=== PATIENT | male | born 1945 | race Caucasian/White ===

== ENCOUNTER 2017-04-16 14:19 | Inpatient (IN) | payer MEDICARE, OTHER ==
[~2017-04-16] VITALS: Ht 172.7 cm; Wt 118.9 kg
[~2017-04-16 14:19] MED LIST: GLUCOPHAGE500 MG/TAB PO; NORCO 325 MG-51 TAB PO; TYLENOL ARTHRI650 M1 PO; VALIUM 10MG10 MG/TAB PO
[2017-04-16 19:46] VITALS: BP 149/68; PULSE 91; TEMP 98
[2017-04-16] MEDS ORDERED: TYLENOL 325MG325 MG PO (23:10)
[2017-04-16] MEDS ORDERED: HEPARIN SOD5000 U/ML SQ (23:12)
[2017-04-16] MEDS ORDERED: ROBAXIN 50500 MG/TAB PO (23:13)
[2017-04-16] MEDS ORDERED: TUMS500 MG (23:14)
[2017-04-16] MEDS ORDERED: GLUCOPHAGE500 MG/TAB PO ×2 (23:17→23:18)
[2017-04-16] MEDS ORDERED: CYANOCOBAL1000 MCG/M IM (23:17)
[2017-04-17 05:43] VITALS: BP 147/61; PULSE 80; TEMP 98.1
[2017-04-17 18:12] VITALS: BP 124/58; PULSE 78; TEMP 98.2
[2017-04-18 04:54] VITALS: BP 127/57; PULSE 73; TEMP 98.5
[2017-04-18 16:54] VITALS: BP 124/75; PULSE 82; TEMP 98.5
[2017-04-19 05:31] VITALS: BP 120/80; PULSE 68; TEMP 98.5
[2017-04-19 17:49] VITALS: BP 115/54; PULSE 78; TEMP 97.9
[2017-04-20 05:39] VITALS: BP 127/55; PULSE 77; TEMP 98.1
[2017-04-20 17:37] VITALS: BP 126/62; PULSE 93; TEMP 98
[2017-04-21 06:00] VITALS: BP 132/55; PULSE 73; TEMP 97.6
[2017-04-21 17:05] VITALS: BP 138/63; PULSE 79; TEMP 97.6
[2017-04-22 04:41] VITALS: BP 123/58; PULSE 73; TEMP 97.1
[2017-04-22 16:18] VITALS: BP 128/58; PULSE 77; TEMP 97.7
[2017-04-23 05:39] VITALS: BP 134/58; PULSE 71; TEMP 97.6
[2017-04-23 16:10] VITALS: BP 104/58; PULSE 78; TEMP 98.2
[2017-04-24 04:15] VITALS: BP 138/59; PULSE 79; TEMP 97.5
[2017-04-24 17:15] VITALS: BP 135/58; PULSE 78; TEMP 98.2
[2017-04-25 05:11] VITALS: BP 136/58; PULSE 70; TEMP 97.1
[2017-04-25 17:23] VITALS: BP 140/58; PULSE 81; TEMP 98.3
[2017-04-26 04:14] VITALS: BP 129/63; PULSE 72; TEMP 98.2
[2017-04-26] MEDS ORDERED: VITAMIN D 1001000 IU PO (08:06)
[2017-04-26] MEDS ORDERED: ROBAXIN 50500 MG/TAB PO (08:10)
[2017-04-26] MEDS ORDERED: NORCO 325 MG-51 TAB PO (08:11)
== END 2017-04-26 11:10 | disposition home or self-care (01) | DRG 948 ==
DX: R53.81 Other malaise (principal); M48.06 Spinal stenosis, lumbar region; Z47.89 Encounter for other orthopedic aftercare; E11.9 Type 2 diabetes mellitus without complications; Z98.1 Arthrodesis status; E66.9 Obesity, unspecified; Z68.38 Body mass index [BMI] 38.0-38.9, adult
CPT/HCPCS: 99222-AI; 99232-AI; 99233-AI; 99239; J1644; J3420

== ENCOUNTER 2017-07-23 11:15 | Outpatient (RCR) | payer MEDICARE, OTHER ==
[~2017-07-23 11:15] MED LIST changes: +CYANOCOBAL1000 MCG/M IM; +HEPARIN SOD5000 U/ML SQ; +ROBAXIN 50500 MG/TAB PO; +TUMS500 MG; +TYLENOL 325MG325 MG PO; +VITAMIN D 1001000 IU PO
== END 2017-07-26 15:08 ==
LOC: WSPT 11:15
DX: Z47.89 Encounter for other orthopedic aftercare (principal); M54.5 Low back pain
CPT/HCPCS: G8978-GP; G8979-GP; G8980-GP

== ENCOUNTER 2017-09-13 10:30 | Outpatient (RCR) | payer MEDICARE, OTHER | END 2017-09-18 08:55 | LOC: WSPT 10:30 | DX: M48.062 Spinal stenosis, lumbar region with neurogenic claudication (principal); Z98.890 Other specified postprocedural states | CPT/HCPCS: G8978-GP; G8979-GP; G8980-GP ==

== ENCOUNTER 2018-12-24 11:50 | Observation (INO) | payer MEDICARE ==
[~2018-12-24] VITALS: Ht 177.8 cm; Wt 91.3 kg
[2018-12-24 12:37] LABS: ALBUMIN 4.1 gm/dL (3.5-5.0); BILIRUBIN,TOTAL 0.7 mg/dL (0.0-1.0); CALCIUM 9.8 mg/dL (8.4-10.2); CREATININE, serum 0.99 mg/dL (0.66-1.25); POTASSIUM 4.3 mmol/L (3.4-5.0); TOTAL PROTEIN 7.6 gm/dL (6.4-8.2)
[2018-12-24 12:46] LABS: BASO # 0.1 (0.0-0.2); BASO % 0.6 % (0.0-2.0); EOS # 0.1 (0.0-0.7); EOS % 0.6 % (0-4.0); GRAN # 6.6 (1.4-6.5); GRAN % 77.2 % (42.2-75.2); HEMATOCRIT 40.8 % (42.0-52.0); HEMOGLOBIN 13.3 g/dl (13.5-18.0); LYMPH # 1.3 (1.2-3.4); LYMPH % 14.8 % (20.0-51.0); MEAN CELL VOLUME 87 fl (80.0-100.0); MEAN CORPUSCULAR HEMOGLOBIN 29 pg (27.0-31.0); MEAN CORPUSCULAR HGB CONC 33 g/dl (33.0-37.0); MEAN PLATELET VOLUME 10.2 fl (7.4-10.4); MONO # 0.5 (0.1-0.6); MONO % 6.4 % (1.7-9.3); PLATELET COUNT 251 K/mm3 (130-400); RED BLOOD COUNT 4.67 M/mm3 (4.20-5.60); REDCELL DISTRIBUTION WIDTH-CV 13.3 % (11.5-14.5)
[2018-12-24] MEDS ORDERED: ASPIRIN 32325 MG/TAB PO (13:37)
[2018-12-24] MEDS ORDERED: SINEMET 25/101 UDTAB PO ×3 (13:38→23:50)
[2018-12-24] MEDS ORDERED: VALIUM 2MG T2 MG/TAB PO (13:38)
--- NOTE | 2018-12-24 14:48 | NUR ---
JARROD spoke with ED nurse about patient possibly needing more home health services. Patient lives alone but his ex- and her sister are very supportive and help with his care. Patient's daughter is involved but lives out of state. JARROD met with patient and ex . Patient reports he is fairly independent and gets home health services once a month through [facility]. Patient is also reevaluated every 6 months to see if patient needs more home health services. Patient's daughter is also working on getting patient into assisted living. JARROD inquired if patient was interested in more home health services (nursing, PT, and OT). Patient reported he is not and would not be able to afford the costs after medicare paid they're portion. JARROD inquired if patient has every applied for medicaid. Patient reports he has but was denied because his social security was too high. JARROD reported all of this to the nurse.
[2018-12-24 15:26] LABS: COLLECTION METHOD CLEAN CATCH
[2018-12-24 15:33] LABS: PH 6 (5-8); SQUAMOUS EPITHELIAL None Seen /hpf; URINE APPEARANCE Clear; URINE BACTERIA None Seen /hpf; URINE BILIRUBIN Negative (NEGATIVE); URINE BLOOD Negative (NEGATIVE); URINE COLOR Yellow; URINE GLUCOSE Negative (NEGATIVE); URINE KETONE 1+ (NEGATIVE); URINE LEUKOCYTE ESTERASE Negative (NEGATIVE); URINE NITRATE Negative (NEGATIVE); URINE PROTEIN(semi-quant) Negative (NEGATIVE); URINE RBC 0-2 /hpf; URINE UROBILINOGEN Negative (NEGATIVE)
[2018-12-24 15:48] VITALS: BP 122/63; PULSE 74
[2018-12-24 16:40] VITALS: BP 134/61; PULSE 66
--- NOTE | 2018-12-24 16:42 | NUR ---
SW contacted [facility] about evaluting patient and also about patient's financial concerns. They report that someone can see patient tomorrow and contact the [facility] [employer] about a potential gage to help pay for home health services. SW informed patient of this.
[2018-12-24] MEDS ORDERED: SLOW-MAG 6464 MG/TAB PO (18:05)
[2018-12-24 18:43] VITALS: BP 117/61; PULSE 77
[2018-12-24 21:17] VITALS: BP 139/62; PULSE 81; TEMP 97.7
--- NOTE | 2018-12-24 21:40 | NUR ---
pt recieved on unit at 2139. no c/o pain. soa. pt resting in bed A+Ox4. reports no needs at this time. call light in reach. med rec, allergies, and pharmacy complete. ELIAS Sawant called.
[2018-12-24] MEDS ORDERED: GLUMETZA500 MG PO (21:45)
[2018-12-25] VITALS (9 sets, daily range): BP systolic 105–136; BP diastolic 44–63; PULSE 58–106; TEMP 96.4–97.8
--- NOTE | 2018-12-25 05:11 | NUR ---
PT resting in bed A+Ox4. no pain. pt acts anxious about blood pressure (105/55), written pt education given on orthostatic hypotension. pt reports no lightheadness, no dizziness when laying or standing. gate unsteady d/t parkinsons. pt reports no needs at this time call light in reach. bed alarm on
--- NOTE | 2018-12-25 07:26 | NUR ---
report given to ANGEL LUIS Fritz. pt reports no needs
[2018-12-25 08:40] LABS: BASO # 0.1 (0.0-0.2); BASO % 0.7 % (0.0-2.0); EOS # 0.1 (0.0-0.7); EOS % 1.8 % (0-4.0); GRAN # 4.5 (1.4-6.5); HEMATOCRIT 37.4 % (42.0-52.0); HEMOGLOBIN 11.7 g/dl (13.5-18.0); LYMPH # 1.9 (1.2-3.4); LYMPH % 26.6 % (20.0-51.0); MEAN CELL VOLUME 90 fl (80.0-100.0); MEAN CORPUSCULAR HEMOGLOBIN 28 pg (27.0-31.0); MEAN CORPUSCULAR HGB CONC 31 g/dl (33.0-37.0); MEAN PLATELET VOLUME 10.3 fl (7.4-10.4); MONO # 0.5 (0.1-0.6); MONO % 6.5 % (1.7-9.3); PLATELET COUNT 208 K/mm3 (130-400); RED BLOOD COUNT 4.15 M/mm3 (4.20-5.60); REDCELL DISTRIBUTION WIDTH-CV 13.4 % (11.5-14.5)
[2018-12-25 08:55] LABS: CALCIUM 8.5 mg/dL (8.4-10.2); CREATININE, serum 0.84 mg/dL (0.66-1.25); MAGNESIUM 1.9 mg/dL (1.6-2.3)
--- NOTE | 2018-12-25 09:00 | NUR ---
Assessment complete. Pt is AXO X3, denies having any pain at this time. Breathing is even and unlabored on room air. Tele on . LA infusing, remains free of complications, and is CDI. Pt is sitting up in the chair watching TV at this time and he denies further needs. Call light within reach, will continue to monitor.
--- NOTE | 2018-12-25 10:14 | NUR ---
Initial visit; Patient thanked E Marketing Specialist for looking in on him and offering encouragement and God's blessiings. Patient appeared somewhat anxious.
--- NOTE | 2018-12-25 13:05 | NUR ---
SW and SW student attended clinical rounding and met with patient to discuss discharge planning. Patient lives alone in [place]. His PCP is Dr Janet Ackerman and he obtains his medications from [facility]. Patient has parkinsons and uses a walker or cane to ambulate. PT and OT have been ordered and SW will continue to follow to assist in discharge planning.
--- NOTE | 2018-12-25 18:38 | NUR ---
Pt has been resting on and off throughout the day. He has remained free of pain. Pt is sitting up in the bed talking with his sister on the phone at this time and he denies further needs. Call light within reach.
--- NOTE | 2018-12-25 19:04 | NUR ---
Report given to ANGEL LUIS Urena.
--- NOTE | 2018-12-25 21:45 | NUR ---
Orthostatics complete and charted as ordered. Patient assisted to restroom x2 assist with gait belt and walker. Unsteady gait. Assessment complete. Lungs clear. Heart murmur heard. +1 bilateral lower leg edema present. Denies pain. Denies needs at this time. Call light in reach.
[2018-12-26 03:19] VITALS: BP 124/49; PULSE 62; TEMP 97.3
== END 2018-12-27 12:11 | disposition home or self-care (01) ==
LOC: COL.ER 11:50 → MEDICAL 19:48
PROVIDERS: Emergency Medicine; Nurse Practitioner Family
DX: I95.1 Orthostatic hypotension (principal); G20 Parkinson's disease; E83.42 Hypomagnesemia; I49.3 Ventricular premature depolarization; E11.69 Type 2 diabetes mellitus with other specified complication; E43 Unspecified severe protein-calorie malnutrition; I08.2 Rheumatic disorders of both aortic and tricuspid valves; I49.9 Cardiac arrhythmia, unspecified; R53.83 Other fatigue; R42 Dizziness and giddiness; Z79.82 Long term (current) use of aspirin; Z79.84 Long term (current) use of oral hypoglycemic drugs; Z81.8 Family history of other mental and behavioral disorders
CPT/HCPCS: G0378; J1644; J1815; J2405; J3475; J7030

== ENCOUNTER 2019-09-26 11:08 | Emergency (ER) | payer MEDICARE ==
[~2019-09-26] VITALS: Ht 177.8 cm; Wt 118.2 kg
[~2019-09-26 11:08] MED LIST changes: +ASPIRIN 32325 MG/TAB PO; +GLUMETZA500 MG PO; +SINEMET 25/101 UDTAB PO; +SLOW-MAG 6464 MG/TAB PO; +VALIUM 2MG T2 MG/TAB PO
[2019-09-26 11:23] VITALS: BP 116/63; TEMP 97
[2019-09-26] MEDS ORDERED: OMNICEF 300MG300 MG PO (12:12)
[2019-09-26] MEDS ORDERED: DOXYCYCLINE 10100 MG PO (12:12)
[2019-09-26 12:24] VITALS: PULSE 82
== END 2019-09-26 12:24 | disposition home or self-care (01) ==
LOC: COL.ER 11:08
DX: L03.031 Cellulitis of right toe (principal); G20 Parkinson's disease; E11.9 Type 2 diabetes mellitus without complications; Z79.4 Long term (current) use of insulin; Z79.82 Long term (current) use of aspirin; Z79.84 Long term (current) use of oral hypoglycemic drugs

== ENCOUNTER 2022-03-14 16:12 | Observation (INO) | payer OTHER, MEDICARE ==
[~2022-03-14] VITALS: Ht 172.7 cm; Wt 116.8 kg
[~2022-03-14 16:12] MED LIST changes: +DOXYCYCLINE 10100 MG PO; +OMNICEF 300MG300 MG PO
[2022-03-14 17:40] LABS: BASO # 0.1 K/mm3 (0.0-0.2); BASO % 0.7 % (0.0-2.0); EOS # 0.1 K/mm3 (0.0-0.7); EOS % 1.6 % (0.0-4.0); GRAN # 6.1 K/mm3 (1.4-6.5); GRAN % 71.1 % (42.2-75.2); HEMATOCRIT 37.2 % (42.0-52.0); LYMPH # 1.6 K/mm3 (1.2-3.4); LYMPH % 18.9 % (20.0-51.0); MEAN CELL VOLUME 88 fl (80.0-100.0); MEAN CORPUSCULAR HEMOGLOBIN 28 pg (27-31); MEAN CORPUSCULAR HGB CONC 32 g/dl (33.0-37.0); MEAN PLATELET VOLUME 9.3 fl (7.4-10.4); MONO # 0.6 K/mm3 (0.1-0.6); MONO % 7.4 % (1.7-9.3); PLATELET COUNT 210 K/mm3 (130-400); RED BLOOD COUNT 4.22 M/mm3 (4.20-5.60); REDCELL DISTRIBUTION WIDTH-CV 13.5 % (11.5-14.5)
[2022-03-14 17:55] LABS: ALANINE AMINOTRANSFERASE 7 U/L (0-55); ALBUMIN 3.6 gm/dL (3.4-4.8); ALKALINE PHOSPHATASE 102 U/L (40-150); ANION GAP 11 mmol/L (7-16); AST,SGOT 9 U/L (5-34); BILIRUBIN,TOTAL 0.6 mg/dL (0.2-1.2); BLOOD UREA NITROGEN 15 mg/dL (8-26); CALCIUM 8.9 mg/dL (8.4-10.2); CARBON DIOXIDE 25 mmol/L (23-31); CHLORIDE 104 mmol/L (98-107); CREATININE, serum 1.06 mg/dL (0.72-1.25); GLUCOSE 188 mg/dL (70-99); POTASSIUM 4.2 mmol/L (3.5-4.5); SODIUM 140 mmol/L (136-145); TOTAL PROTEIN 7.3 gm/dL (6.2-8.1)
[2022-03-14 18:02] LABS: TROPONIN-I < 0.010 ng/mL (0.00-0.033)
[2022-03-14 19:01] LABS: COLLECTION METHOD CLEAN CATCH
[2022-03-14 19:06] LABS: PH 6 (5-8); SQUAMOUS EPITHELIAL None Seen /hpf (0-10); URINE APPEARANCE Clear (CLEAR/HAZY); URINE BACTERIA Rare /hpf (NONE SEEN); URINE BILIRUBIN Negative (NEGATIVE); URINE BLOOD Negative (NEGATIVE); URINE COLOR Yellow (YELLOW); URINE GLUCOSE 2+ (NEGATIVE); URINE KETONE Negative (NEGATIVE); URINE LEUKOCYTE ESTERASE 1+ (NEGATIVE); URINE NITRATE Negative (NEGATIVE); URINE PROTEIN(semi-quant) Negative (NEGATIVE); URINE RBC 0-2 /hpf (0-2); URINE UROBILINOGEN Negative (NEGATIVE)
[2022-03-14 20:51] VITALS: BP 137/62; PULSE 80; TEMP 99.6
[2022-03-14] MEDS ORDERED: COREG12.5 MG PO (21:19)
[2022-03-14] MEDS ORDERED: PLAVIX 75MG TAB75 MG PO (21:22)
[2022-03-15 00:05] VITALS: BP 103/49; PULSE 75; TEMP 97.9
[2022-03-15 04:28] VITALS: BP 117/57; PULSE 68; TEMP 97.4
[2022-03-15 06:43] LABS: BASO # 0.1 K/mm3 (0.0-0.2); BASO % 0.6 % (0.0-2.0); EOS # 0.1 K/mm3 (0.0-0.7); EOS % 1.7 % (0.0-4.0); GRAN # 4.9 K/mm3 (1.4-6.5); GRAN % 62.7 % (42.2-75.2); HEMOGLOBIN 12.3 g/dl (13.5-18.0); LYMPH # 2.2 K/mm3 (1.2-3.4); LYMPH % 27.6 % (20.0-51.0); MEAN CELL VOLUME 87 fl (80.0-100.0); MEAN CORPUSCULAR HEMOGLOBIN 29 pg (27-31); MEAN CORPUSCULAR HGB CONC 34 g/dl (33.0-37.0); MEAN PLATELET VOLUME 9.6 fl (7.4-10.4); MONO # 0.5 K/mm3 (0.1-0.6); MONO % 6.9 % (1.7-9.3); PLATELET COUNT 203 K/mm3 (130-400); REDCELL DISTRIBUTION WIDTH-CV 13.6 % (11.5-14.5)
[2022-03-15 06:44] LABS: HEMATOCRIT 36.6 % (42.0-52.0)
[2022-03-15 07:03] LABS: CALCIUM 8.6 mg/dL (8.4-10.2); CREATININE, serum 1.01 mg/dL (0.72-1.25); MAGNESIUM 1.4 mg/dL (1.6-2.6); POTASSIUM 3.7 mmol/L (3.5-4.5)
[2022-03-15 08:13] VITALS: BP 109/49; PULSE 75; TEMP 97.9
--- NOTE | 2022-03-15 09:24 | NUR ---
Initial visit; Patient thanked for coming in and with her urging he spoke of his upcoming heart surgery at [facility] in [place]. offered God's blessings and will keep him in her prayers at his request. Patient declined prayer at this time.
[2022-03-15 11:12] VITALS: BP 105/47; PULSE 64; TEMP 97.4
[2022-03-15] MEDS ORDERED: LIPITOR 80MG80 MG PO (11:20)
[2022-03-15] MEDS ORDERED: ALDACTONE 25MG25 M1 PO (11:20)
[2022-03-15] MEDS ORDERED: LASIX 40MG TABL40 MG PO (11:21)
[2022-03-15] MEDS ORDERED: ASPIRIN 81M81 MG/TA2 PO (11:21)
--- NOTE | 2022-03-15 11:42 | NUR ---
The patient was downgraded to observation status. JARROD and dietary services director, Carrie, met with the patient to notify. Carrie answered all questions. JARROD presented and read the Medicare Outpatient Observation Notice Form outloud to the patient. The patient verbalized understanding and signed the form. JARROD provided him with a copy.
--- NOTE | 2022-03-15 12:44 | NUR ---
Director Product Safety met with patient to discuss discharge planning. Patient lives alone in [place] and sees Dr. Ackerman for primary care. [facility] obtains [facility] from [facility] or [facility]. Patient has a four wheeled walker and standard walker at home. Patient states he is mostly independent with ADLS but has [facility] services to assist with bathing and cleaning. Patient states he has them come in three times a week for bathing. Patient states he also has a nurse that comes to visit him at home from the [facility]. Patient reports his daughter, Milton (ph#[phone]) is his DPOA-HC and is a nurse practitioner. Patient states his daughter, Aminah (ph#[phone]) lives locally and will provide transportation at time of discharge. Patient plans to return home at time of discharge and reports he has an appointment at [facility] on Sunday. JARROD contacted patient's daughter, Milton to review discharge plan. Milton advised patient has everything he needs at home, however she worries that they are reaching a point where it may be better for patient to live at an Assisted Living facility. Milton has had these discussions with patient, however reports he can be stubborn. JARROD contacted Naz at Dr. Acekrman's office and requested copy of DPOA-. Discharge Plan: Home with in home supports through the [facility] and [facility].
[2022-03-15 16:34] VITALS: BP 134/58; PULSE 69; TEMP 97.8
--- NOTE | 2022-03-15 16:50 | NUR ---
THE PATIENT HAS BEEN GIVEN DISCHARGE INFORMATION; VERBALIZED UNDERSTANDING. THE PCT IS DRESSING THE PATIENT AND WALKING HIM OUT AT THIS TIME.
== END 2022-03-15 17:00 | disposition home or self-care (01) ==
LOC: COL.ER 16:12 → MEDICAL 18:38
PROVIDERS: Physician Assistant; Student in an Organized Health Care Education/Training Program; ADMIT Internal Medicine
DX: I50.9 Heart failure, unspecified (principal); J18.9 Pneumonia, unspecified organism; J91.8 Pleural effusion in other conditions classified elsewhere; E83.42 Hypomagnesemia; G20 Parkinson's disease; E11.9 Type 2 diabetes mellitus without complications; Z79.899 Other long term (current) drug therapy; Z98.890 Other specified postprocedural states; Z95.0 Presence of cardiac pacemaker; Z20.822 Contact with and (suspected) exposure to COVID-19; Z79.01 Long term (current) use of anticoagulants; Z79.82 Long term (current) use of aspirin
CPT/HCPCS: 99223-AI; G0378; J1650; J1940; J3475

== ENCOUNTER 2022-12-24 13:40 | Emergency (ER) | payer OTHER, MEDICARE ==
[~2022-12-24] VITALS: Ht 175.3 cm; Wt 106.8 kg
[~2022-12-24 13:40] MED LIST changes: +ALDACTONE 25MG25 M1 PO; +ASPIRIN 81M81 MG/TA2 PO; +B-121000 MCG PO; +CEPHALEXIN500 M1 PO; +COREG12.5 MG PO; +ENTRESTO 24 MG1 EACH PO; +FLONASE SENSIM9.9 ML NS; +JARDIANCE25; +LASIX 20MG TABL20 MG PO; +LASIX 40MG TABL40 MG PO; +LIPITOR 80MG80 MG PO; +NITROSTAT0.4 MG/TAB SL; +PLAVIX 75MG TAB75 MG PO; +SENEXON-S 50-81 EACH PO; +TYLENOL SU325 MG/SUP RC; +VITAMIN D362.5 MC1 PO
[2022-12-24 13:55] VITALS: BP 107/59; TEMP 97.4
[2022-12-24 14:44] LABS: COLLECTION METHOD CLEAN CATCH
[2022-12-24 14:58] LABS: URINE APPEARANCE Turbid (CLEAR/HAZY); URINE COLOR Yellow (YELLOW)
[2022-12-24 14:59] LABS: URINE PROTEIN(semi-quant) 1+ (NEGATIVE)
[2022-12-24 15:00] LABS: URINE BLOOD 3+ (NEGATIVE); URINE GLUCOSE 2+ (NEGATIVE); URINE KETONE Negative (NEGATIVE); URINE NITRATE Negative (NEGATIVE); URINE UROBILINOGEN 0.2 E.U/dL (0.2-1.0)
[2022-12-24 15:12] LABS: BUDDING YEAST Present (NOT PRESENT); SQUAMOUS EPITHELIAL None Seen /hpf (0-10); URINE BACTERIA None Seen /hpf (NONE SEEN); URINE RBC >50 /hpf (0-2); URINE WBC >50 /hpf (0-2)
[2022-12-24] MEDS ORDERED: ZOFRAN ODT4 MG PO (15:16)
[2022-12-24] MEDS ORDERED: VANTIN 200200 MG/TAB PO (15:16)
[2022-12-24 15:49] VITALS: PULSE 85
== END 2022-12-24 16:26 | disposition home or self-care (01) ==
LOC: COL.ER 13:40
PROVIDERS: Emergency Medicine
DX: N39.0 Urinary tract infection, site not specified (principal); Z28.310 Unvaccinated for COVID-19
CPT/HCPCS: J0696